=== PATIENT | male | born 1995 | race Caucasian/White ===

== ENCOUNTER 2017-07-13 11:18 | Day surgery (SDC) | payer MEDICAID ==
[~2017-07-13 11:18] MED LIST: NAPROXEN250 MG PO; OMEPRAZOLE40 MG PO; VYVANSE PO; VYVANSE70 MG PO; WELLBUTRIN100 MG PO; ZANTAC150 MG PO
[2017-07-13] MEDS ORDERED: ZYLOPRIM300 MG PO (12:56)
[2017-07-13 12:59] VITALS: BP 106/56; BMI 51.7
--- NOTE | 2017-07-13 16:50 | NUR ---
REC'D TO ROOM FROM GI LAB. DROWSY BUT REPONDS TO VERBAL STIMULI. REQUESTS WATER, PROVIDED.
[2017-07-13] MEDS ORDERED: NEXIUM40 MG (17:01)
--- NOTE | 2017-07-13 17:05 | NUR ---
FULL LIQUIDS SERVED. AWAKE AND ALERT. TALKING WITH .
--- NOTE | 2017-07-13 17:36 | NUR ---
IV D/C'D CATH INTACT.
--- NOTE | 2017-07-13 17:48 | NUR ---
D/C INSTRUCTIONS EXPLAINED TO PT. VOICED UNDERSTANDING. COPIES OF ALL GIVEN WELL WRITTEN RX FOR NEXIUM PER DR. SAMANO. D/C'D HOME VIA W/C TO PRIVATE CAR.
--- NOTE | 2017-07-15 14:00 | OP ---
PATIENT NAME: ANAT BERNABE MEDICAL RECORD: [id number] :93 LOCATION:D.OPS ADMISSION DATE: SURGEON: HAKAN SAMANO MD DATE OF OPERATION: 07/13/2017 PREOPERATIVE DIAGNOSIS: Worsening gastroesophageal reflux. POSTOPERATIVE DIAGNOSES: Worsening gastroesophageal reflux with an intact TIF; however, there has been a recurrent hiatal hernia, also prepyloric gastric erosion. PROCEDURE: Esophagogastroduodenoscopy with antral and distal esophageal biopsies. SURGEON: Hakan Samano MD GOLF COURSE STARTER: None. BLOOD LOSS: Minimal. ANESTHESIA: IV sedation. COMPLICATIONS: None. The risks, possible complications and alternatives to procedure were explained to the patient. He elects to proceed. ENDOSCOPIC COURSE: The patient was conveyed to the endoscopy suite electively on 07/13/2017. IV sedation was induced by the anesthesia staff. A bite block was inserted. A gastroscope was inserted into the mouth. It was advanced easily into the hypopharynx. The esophagus was easily intubated as were the stomach and duodenum. Upon withdrawal, retroflexed and angulus views were obtained. Antral biopsies were obtained. Distal esophageal biopsies were obtained. The endoscope was then withdrawn under direct vision. I am going to place the patient back on a proton pump inhibitor. I am going to recommend Nexium. I will see him in my office in 2-3 weeks. TRANSINT:[id number] Voice Confirmation ID: [id number] DOCUMENT ID: [id number] HAKAN SAMANO MD at 1400 CC: BRANDON ISRAEL MD [id number] DICTATION DATE: 07/13/17 1637 DEALER SALES MANAGER: 07/13/17 1655 [facility] 07/13/[address] [address]
--- NOTE | 2017-07-15 14:00 | HP ---
PATIENT: ANAT BERNABE MEDICAL RECORD: [id number] ACCOUNT: [id number] LOCATION:[facility] : [id number] ADMISSION DATE: 07/13/17 HISTORY AND PHYSICAL EXAMINATION CHIEF COMPLAINT: Reflux. HISTORY OF PRESENT ILLNESS: The patient has undergone a TIF with a laparoscopic hiatal hernia repair. He is having increasing reflux symptoms including some volume reflux, particularly in the morning. The patient also has history of Pina's and on 04/15/2016, he underwent upper endoscopy and this revealed chronic gastritis. No Helicobacter pylori organisms were noted. The esophageal biopsy revealed goblet-like changes with mild to moderate chronic inflammation consistent with reflux-type injury, but not diagnostic for Pina's. ALLERGIES: No known drug allergies. HOME MEDICATIONS: Allopurinol, Vyvanse as well as naproxen. SOCIAL HISTORY: He is a smoker. PAST MEDICAL AND SURGICAL HISTORY: Sleep apnea, asthma, hiatal hernia with repair as described above, gastroesophageal reflux, arthritis. PHYSICAL EXAMINATION: GENERAL: The patient does not appear acutely ill. He does not appear chronically ill. VITAL SIGNS: Reviewed. EARS: External ears appear normal. EYES: Extraocular movements are intact. NECK: Trachea is midline. CHEST: No intercostal retractions. PULMONARY: Nonlabored. IMPRESSION: 1. Worsening gastroesophageal reflux. 2. History of possible Pina's. PLAN: EGD with biopsies. TRANSINT:[id number] Voice Confirmation ID: [id number] DOCUMENT ID: [id number] TAHMINA SAMANO MD at 1400 CC: BRANDON ISRAEL MD [id number] DICTATION DATE: 07/13/17 1617 DIRECTOR OF CLINICAL TRIALS: 07/13/[address] [place] [address] 07/13/17 [facility] [address] [place] [address]
== END 2017-07-13 17:58 | disposition home or self-care (01) ==
LOC: D.OPS 11:18
DX: K21.9 Gastro-esophageal reflux disease without esophagitis (principal); K44.9 Diaphragmatic hernia without obstruction or gangrene; K25.9 Gastric ulcer, unspecified as acute or chronic, without hemorrhage or perforation; Z01.812 Encounter for preprocedural laboratory examination